=== PATIENT | female | born 1990 | race Caucasian/White ===

== ENCOUNTER 2018-08-28 19:37 | Emergency (ER) | payer OTHER ==
[~2018-08-28] VITALS: Ht 157.5 cm; Wt 105.2 kg
[2018-08-28 19:38] VITALS: Ht 157.5 cm; Wt 105.2 kg
--- NOTE | 2018-08-28 21:01 | ERD ---
ER Documentation Chief Complaint Chief Complaint L CALF PAIN X'S 9 DAYS; RUQ PAIN RADIATE TO BACK 1 MO HPI The patient is a 28-year-old female, presenting to the ER because of left leg pain for the last 9 days, denies any trauma, denies recent traveling. She complains of right upper quadrant abdominal pain radiating to the right upper back for 1 month intermittently, seen by her physician who treated her with omeprazole. She denies fever, chills, neck pain, chest pain, dyspnea, vomiting, dysuria, diarrhea. She does not smoke nor drink Past medical history: Varicosis Surgical history: None ROS All systems reviewed and are negative except as per history of present illness. Medications Home Meds Active Scripts Hydrocodone/Acetaminophen ([place] 5-325 Tablet) 1 Each Tablet, 1 TAB PO Q6H PRN for PAIN, #7 TAB Prov:MICKY ACKERMAN MD 08/28/18 Ibuprofen* (Motrin*) 600 Mg Tab, 600 MG PO Q6H PRN for PAIN AND OR ELEVATED TEMP, #20 TAB Prov:MICKY ACKERMAN MD 08/28/18 Allergies Allergies: Coded Allergies: iodine (Verified Allergy, Unknown, 08/28/18) Physical Exam Vitals Vital Signs Date Temp Pulse Resp B/P (MAP) Pulse Ox O2 O2 Flow FiO2 Time Delivery Rate 08/28/18 98.4 78 18 133/96 95 19:38 (108) Physical Exam Const: No acute distress. Head: Atraumatic. Eyes: Normal Conjunctiva. ENT: Normal External Ears, Nose and Mouth. Neck: Full range of motion. No meningismus. Resp: Clear to auscultation bilaterally. Cardio: Regular rate and rhythm. Abd: Soft, non distended, normal bowel sounds, mild right upper quadrant tenderness, no right lower quadrant/ rigidity/rebound/CVA tenderness Skin: No petechiae or rashes. Back: No midline or flank tenderness. Ext: Left leg with mild calf tenderness, not warm to touch Neur: Awake and alert. No focal deficit Psych: Normal Mood and Affect. Result Diagram: 08/28/18220308/28/182203 Results 24 hrs Laboratory Tests Test 08/28/18 22:04 08/28/18 22:14 08/28/18 22:16 White Blood Count 9.4 10^3/ul Red Blood Count 4.54 10^6/ul Hemoglobin 13.7 g/dl Hematocrit 40.5 % Mean Corpuscular Volume 89.2 fl Mean Corpuscular Hemoglobin 30.2 pg Mean Corpuscular Hemoglobin Concent 33.8 g/dl Red Cell Distribution Width 12.1 % Platelet Count 261 10^3/UL Mean Platelet Volume 10.1 fl Immature Granulocytes % 0.300 % Neutrophils % 74.6 % Lymphocytes % 19.1 % Monocytes % 5.3 % Eosinophils % 0.5 % Basophils % 0.2 % Nucleated Red Blood Cells % 0.0 /100WBC Immature Granulocytes # 0.030 10^3/ul Neutrophils # 7.0 10^3/ul Lymphocytes # 1.8 10^3/ul Monocytes # 0.5 10^3/ul Eosinophils # 0.1 10^3/ul Basophils # 0.0 10^3/ul Nucleated Red Blood Cells # 0.0 10^3/ul Prothrombin Time 12.1 Sec Prothrombin Time Ratio 0.9 INR International Normalized Ratio 0.89 Activated Partial Thromboplast Time 27.5 Sec Sodium Level 141 mmol/L Potassium Level 4.1 mmol/L Chloride Level 106 mmol/L Carbon Dioxide Level 27 mmol/L Anion Gap 8 Blood Urea Nitrogen 8 mg/dl Creatinine 0.52 mg/dl Est Glomerular Filtrat Rate mL/min > 60 mL/min Glucose Level 103 mg/dl Calcium Level 9.5 mg/dl Total Bilirubin 0.3 mg/dl Direct Bilirubin 0.00 mg/dl Indirect Bilirubin 0.3 mg/dl Aspartate Amino Transf (AST/SGOT) 22 IU/L Alanine Aminotransferase (ALT/SGPT) 16 IU/L Alkaline Phosphatase 58 IU/L Total Protein 7.8 g/dl Albumin 4.4 g/dl Globulin 3.40 g/dl Albumin/Globulin Ratio 1.29 Lipase 94 U/L Bedside Urine pH (LAB) 5.5 Bedside Urine Protein (LAB) Negative Bedside Urine Glucose (UA) Negative Bedside Urine Ketones (LAB) Negative Bedside Urine Blood Trace-intact Bedside Urine Nitrite (LAB) Negative Bedside Urine Leukocyte Esterase (L Negative POC Beta HCG, Qualitative NEGATIVE Current Medications Medications Dose Sig/Marielena Start Time Status Last (Trade) Ordered Route PRN Stop Time Admin Dose Reason Admin Ketorolac 30 mg ONCE STAT 08/28/18 DC Tromethamine IV 23:09 08/28/18 (Toradol) 23:26 Morphine 2 mg ONCE STAT 08/28/18 DC Sulfate IV 23:09 08/28/18 (morphine) 23:26 Ondansetron 4 mg ONCE STAT 08/28/18 DC HCl (Zofran IV 23:09 08/28/18 Inj) 23:26 Procedures/MDM [place] [id number] Radiology Main Line: [phone] DIAGNOSTIC IMAGING REPORT Patient: LUL HERRERA : 1990 Age: 27 Sex: F MR #: [id number] DOS: 08/28/182122 Ordering MD: MICKY ACKERMAN MD Location: E/R Room/Bed: PROCEDURE: US DVT. CLINICAL INDICATION: Left lower extremity pain and swelling. TECHNIQUE: Multiple longitudinal and transverse images of the left lower e xtremity veins were obtained with hernandez scale and color Doppler imaging. 2D grayscale measurements with compression, color Doppler flow, and augmentation was performed. The calf veins were interrogated as well. COMPARISON: No prior studies are available for comparison. FINDINGS: The left common femoral, superficial femoral and popliteal veins are normally compressible throughout. Color flow demonstrates normal filling of the vessel. Normal waveforms are visualized and there is normal response to augmentation. The calf veins are visualized and are equally unremarkable. IMPRESSION: 1. No evidence of a deep vein thrombosis involving the left lower extremity. RPTAT: HFN .Jamar Birch MD, Date Time Electronically viewed and signed by .Jamar Birch MD, on 08/28/2018 22:21 .N/ CC: MICKY ACKERMAN MD [id number] [place] [id number] Radiology Main Line: [phone] DIAGNOSTIC IMAGING REPORT Patient: LUL HERRERA : 1990 Age: 27 Sex: F MR #: [id number] DOS: 08/28/183 Ordering MD: MICKY ACKERMAN MD Location: E/R Room/Bed: PROCEDURE: US Abdomen Right Upper Quadrant. CLINICAL INDICATION: Abdominal pain TECHNIQUE: Multiple real-time longitudinal and transverse images were acquired of the patient's right upper quadrant abdomen utilizing a curved array transducer. COMPARISON: None FINDINGS: Liver: The liver is normal in size with the sagittal diameter of the right lobe measuring 15.6 cm. The hepatic echotexture is normal. No focal lesion is evident. There is normal directional flow of the main portal vein. Gallbladder: Appears unremarkable and no stones are identified. There is no pericholecystic fluid. Bile ducts: There is no significant intra or extrahepatic bile duct dilatation. The common bile duct measures 2.5 mm in cross diameter. No choledocholiths are seen within the visualized portions of the duct. Pancreas: The pancreas is largely obscured by bowel. Right kidney: The right kidney is somewhat small measuring 8.9 cm in length. No mass, pathological calcification, or hydronephrosis is evident. Peritoneum: There is no free intraperitoneal fluid IMPRESSION: 1. Normal gallbladder with no cholelithiasis or gallbladder wall thickening evident. No bile duct dilatation is evident. 2. The pancreas is obscured by bowel gas. 3. Normal appearing liver with no focal lesion. There is normal directional flow of the main portal vein. 4. The right kidney is slightly small but otherwise unremarkable without evidence of hydronephrosis. 5. No free intraperitoneal fluid is evident. Physician Adalid Date Time Electronically viewed and signed by Physician Adalid on 08/28/2018 22:13 RH/ CC: MICKY ACKERMAN MD [id number] MEDICAL MAKING DECISION: The patient is a 28-year-old female, presenting with acute abdominal pain of unclear etiology, acute left leg pain is likely musculoskeletal, was treated with morphine 2 mg IV, Toradol 30 mg IV for pain and Zofran 4 mg IV for now sent with good response, is stable for outpatient follow-up The differential diagnoses considered include but are not limited to cholelithiasis, cholecystitis, choledocholithiasis, cholangitis, pancreatitis, hepatitis, gastritis, peptic ulcer disease, gastric ulcer, appendicitis, c ystitis, diverticulitis, partial small bowel obstruction, cellulitis, DVT. Departure Diagnosis: Primary Impression: Abdominal pain Additional Impression: Left leg pain Condition: Good Comments She was discharged with Motrin and 7 tablets of [place] 5 mg The patient's blood pressure was elevated (>120/80) but appears stable without evidence of hypertension emergency or urgency. The patient was counseled about the risks of hypertension and urged to pursue outpatient monitoring and therapy within a week with their primary care physician. I discussed the findings with the patient. I advised the patient to follow-up with the primary physician in about 2-3 days, sooner if needed and return if any concern. Disclaimer: Inadvertent spelling and grammatical errors are likely due to EHR/dictation software use and do not reflect on the overall quality of patient care. Also, please note that the electronic time recorded on this note does not necessarily reflect the actual time of the patient encounter. MICKY ACKERMAN MD August 28, 2018 21:01
[2018-08-28] MEDS ORDERED: ONDANSETRON 4 MG INJ IV STA (23:09)
[2018-08-28] MEDS ORDERED: KETOROLAC 30 MG INJ IV STA (23:09)
[2018-08-28] MEDS ORDERED: morphine 2 MG INJ IV STA (23:09)
[2018-08-28] MEDS ORDERED: HYDR-4011 PO (23:11)
[2018-08-28] MEDS ORDERED: IBUP-1542 PO (23:11)
[2018-08-29 00:20] VITALS: BP 104/70; PULSE 70; RESP 17
== END 2018-08-29 00:20 | disposition home or self-care (01) ==
LOC: E/R 19:37 → EDBD 19:37 → E/R 08-29 00:20
DX: M79.605 Pain in left leg (principal); R10.11 Right upper quadrant pain
CPT/HCPCS: 36415; 76705; 80053; 81003; 81025; 83690; 85025; 85610; 85730; 93971; 96374; 96375; J1885; J2270; J2405; Z7502